=== PATIENT | female | born 1930 | race Caucasian/White ===

== ENCOUNTER 2016-09-26 14:52 | Emergency (ER) | payer MEDICARE, OTHER ==
[2015-10-22 14:32] VITALS: BMI 33.9
[~2016-09-26 14:52] MED LIST: ACIPHEX20 MG PO; ASPIRIN81 MG PO; BAYER CHEWABLE81 MG PO; COZAAR50 MG PO; CYMBALTA30 MG PO; GABAPENTIN100 MG PO; HYDROCODON-ACE1 EAC7 PO; ISOSORBIDE DINI30 MG PO; LEXAPRO20 MG; LEXAPRO20 MG PO; PLAVIX75 MG PO; TOPROL XL25 MG PO; ULTRAM50 MG PO; ZOCOR20 MG PO
[2016-09-26 15:27] LABS: BASOPHILS 0.3 % (0.0-2.0); EOSINOPHILS 0.6 % (0-7); HEMOGLOBIN 14.1 g/dL (12-16); IMMATURE GRANULOCYTES 0.4 % (0-5); LYMPHOCYTES 27.8 % (15-50); MCH 32.4 pg (26.0-34.0); MCHC 32.8 g/dL (31.0-37.0); MCV 98.9 fL (80.0-100.0); MEAN PLATELET VOLUME 10.8 fL (7.4-10.4); MONOCYTES 10.3 % (2-11); NEUTROPHILS 60.6 % (40-80); PLATELET COUNT 167 10x3/uL (130-400); RBC 4.35 10x6/uL (4.00-5.40); RDW 13.6 % (11.5-14.5); WBC 6.8 10x3/uL (4.8-10.8)
[2016-09-26 15:44] LABS: ALBUMIN 3.3 g/dL (3.4-5.0); ALKALINE PHOSPHATASE 66 U/L (46-116); ALT (SGPT) 29 U/L (10-68); BILIRUBIN - TOTAL 0.99 mg/dL (0.2-1.3); CALC OSMOLALITY 282 mosm/kg (275-300); CARBON DIOXIDE 28.1 mmol/L (21.0-32.0); CHLORIDE - SERUM 104 mmol/L (98-107); CREATININE - SERUM 0.9 mg/dL (0.6-1.3); GLUCOSE 100 mg/dL (74-106); PROTEIN - SERUM 6.6 g/dL (6.4-8.2); SODIUM 140 mmol/L (136-145); UREA NITROGEN 24 mg/dL (7-18); eGFR NON AFRICAN AMERICAN 63 mL/min (90-120)
[2016-09-26 15:55] LABS: CHOL - HDL RATIO 2.2 ratio (2.3-4.1); CHOLESTEROL, TOTAL 172 mg/dL (0-200); CKMB 1.8 U/L (0.0-3.6); CREATINE KINASE 79 UL (21-215); HDL CHOLESTEROL 77 mg/dL (32-96); LDL CHOLESTEROL 62 mg/dL (0-100); LDL-HDL RATIO 0.8 ratio (1.5-3.5); TRIGLYCERIDE 169 mg/dL (30-200)
[2016-09-26 16:00] LABS: TROPONIN-I < 0.017 ng/mL (0.000-0.060)
== END 2016-09-26 16:55 | disposition home or self-care (01) ==
LOC: D.ER 14:52
PROVIDERS: Emergency Medicine
DX: R07.89 Other chest pain (principal); I10 Essential (primary) hypertension

== ENCOUNTER 2017-02-20 07:50 | Outpatient (CLI) | payer MEDICARE, OTHER ==
[~2017-02-20] VITALS: Ht 147.3 cm; Wt 73.6 kg
--- NOTE | ~2017-02-20 | HEMODYNAMI ---
PATIENT:LARA CORBIN MEDICAL RECORD: [id number] : 28 LOCATION:[facility] ADMISSION DATE: 02/20/17 Generatedon:02/20/201710:47 Patient name: LARA CORBIN Patient #: [id number] SSN: DO B: 1930 Date of study: 02/20/2017 Page: Of Hemodynamic Procedure Report Patient Data Patient Demographics Procedure consent was obtained First Name: LARA Gender: Female Last Name: SHAQUILLE : 1930 Middle Initial: M Age: 86 year(s) Patient #: [id number] Race: Additional ID: [id number] Contact details [address]: [address] [place] [address] State: [place] City: [place] Zip code: [address] Past Medical History Allergies: No known allergies Admission Admission Data Admission Date: 02/20/2017 Admission Time: 7:50 Procedure Procedure Types Cath Procedure Diagnostic Procedure LHC LHC w/Coronaries PCI Procedure Coronary Stent Initial Miscellaneous Procedures Moderate Sedation up to 15 minutes Procedure Description Procedure Date Procedure Date: 02/20/2017 Procedure Start Time: 10:30 Procedure End Time: 10:45 Procedure Staff Name Function Dominic Jean MD Performing Physician Cait Padilla RT Scrub Wade Naranjo RN Nurse Siobhan Valdez RT Monitor Procedure Data Cath Procedure Fluoroscopy Diagnostic fluoroscopy Total fluoroscopy Time: 3.9 time: 3.9 min min Diagnostic fluoroscopy Total fluoroscopy dose: 492 dose: 492 mGy mGy Contrast Material Contrast Material Type Amount (ml) Isovue 300 60 Entry Location Entry Primary Successful Side Size Upsize Upsize Entry Closure Shaw ccessful Closure Location (Fr) 1 (Fr) 2 (Fr) Remarks Device Remarks Radial Right 6 Fr Mechanical artery Short Compression Estimated blood loss: 10 ml Diagnostic catheters Device Type Used For End Catheter Placement Diagnostic Terumo 5Fr LV Angiography Imperial 110cm catheter Procedure Complications No complications Procedure Medications Medication Administration Route Dosage Oxygen NC 2 l/min Heparin Flush Bag added to field 2 bags (1000units/500ml NS) 0.9% NaCl I.V. 100 ml/hr Radial Cocktail added to field 1 syringe (Verapomil 2mg/Nitro 400mcg/Heparin 1500units) Fentanyl I.V. 25 mcg Versed I.V. 0.5 mg Radial Cocktail I.A. 1 syringe (Verapomil 2mg/Nitro 400mcg/Heparin 1500units) Fentanyl I.V. 25 mcg Versed I.V. 0.5 mg Heparin Bolus I.V. 4000 units Integrilin (Bolus I.V. 6.2 ml 2mg/ml) Integrilin (Bolus wasted 3.8 ml 2mg/ml) Plavix P.O. 600 mg Hemodynamics Rest Heart Rate: 51 (bpm) Snapshots Pre Cath Intra NCS Post Cath Vital Signs Time Heart Resp SPO2 NIBP (mmHg) Rhythm Pain Sedation Rate (ipm) (%) Status Level (bpm) 10:17:47 51 20 91 145/66(121) NSR 0 (11) 10(A) , No pain 10:21:53 58 17 95 120/59(105) NSR 0 (11) 10(A) , No pain 10:26:07 53 17 91 114/54(84) NSR 0 (11) 9(A) , No pain 10:30:19 53 20 91 111/55(82) NSR 0 (11) 9(A) , No pain 10:34:29 60 18 91 99/52(78) NSR 0 (11) 9(A) , No pain 10:38:39 64 19 91 116/45(81) NSR 0 (11) 9(A) , No pain 10:42:51 62 18 93 116/55(91) NSR 0 (11) 9(A) , No pain 10:45:59 61 16 94 112/55(85) NSR 0 (11) 9(A) , No pain Medications Time Medication Route Dose Verified Delivered Reason Note s Effectiveness by by 10:20:08 Oxygen NC 2 l/min Wade Olvera Per physician Jose A Naranjo RN RN 10:20:16 Heparin Flush added 2 bags Wade Olvera used for Bag to Jose A Naranjo diamond grader (1000units/500ml field RN NS) 10:20:24 0.9% NaCl I.V. 100 Wade Weiry Per physician ml/hr Jose A Naranjo RN RN 10:20:42 Radial Cocktail added 1 Wade Wade used for (Verapomil to syringe Jose A Naranjo RN procedure 2mg/Nitro field RN 400mcg/Heparin 1500units) 10:21:01 Fentanyl I.V. 25 mcg Wade Wade for sedation Jose A Naranjo RN RN 10:21:08 Versed I.V. 0.5 mg Wade Wade for sedation Jose A Naranjo RN RN 10:31:16 Radial Cocktail I.A. 1 Wade Dominic for (Verapomil syringe Jose A Jean MD vasodilation 2mg/Nitro RN 400mcg/Heparin 1500units) 10:32:16 Fentanyl I.V. 25 mcg Wade Wade for sedation Jose A Naranjo RN RN 10:32:20 Versed I.V. 0.5 mg Wade Wade for sedation Jose A Naranjo RN RN 10:37:40 Heparin Bolus I.V. 4000 Wade Wade for units Jose A Naranjo RN anticoagulation RN 10:37:53 Integrilin I.V. 6.2 ml Wade Wade for (Bolus 2mg/ml) Jose A Naranjo RN antiplatelet RN therapy 10:40:10 Integrilin wasted 3.8 ml Wade Weiry for (Bolus 2mg/ml) Jose A Naranjo RN antiplatelet RN therapy 10:44:57 Plavix P.O. 600 mg Wade Wade for Jose A Naranjo RN antiplatelet RN therapy Procedure Log Time Note 9:50:24 Wade Naranjo RN sent for patient. Start room use. 10:05:25 Time tracking: Regular hours 10:05:29 Plan of Care:Hemodynamics will remain stable., Cardiac rhythm will remain stable., Comfort level will be maintained., Respiratory function will remain adequate., Patient/ family verbilizes understanding of procedure., Procedure tolerated without complication., Recovers from procedure without complications.. 10:05:33 Patient received from Pre/Post Procedure Room to [facility] 2 Alert and oriented. Tansferred to table in Supine position. 10:05:35 Warm blankets applied, and shade hugger turned on for patient comfort. 10:05:35 Correct patient and procedure confirmed by team. 10:05:36 Signed procedure consent form obtained from patient. 10:05:37 ECG and BP/O2 sat monitors applied to patient. 10:05:37 Full Disclosure recording started 10:11:34 H&P Date Dictated: 02/17/2017 Within 30 days and on chart., H&P Addendum completed by physician on day of procedure. (MUST COMPLETE FOR ALL OUTPATIENTS). 10:11:37 Pre-procedure instructions explained to patient. 10:11:39 Family in waiting room. 10:11:42 Patient NPO since Midnight. 10:11:59 Patient allergic to No known allergies 10:12:08 Is the patient allergic to Iodine/contrast media? No. 10:15:29 Is patient on blood thinner?Yes 10:15:32 ACC The patient was administered the following blood thiners within the last 24 hours: ACCPlavix 10:15:42 Baseline sample Acquired. 10:15:42 Vital chart was started 10:15:47 Rhythm: sinus rhythm 10:15:53 Snore? Yes 10:15:59 Dentures? Yes ? 10:16:04 Patient pain scale 0/10 ?. 10:16:10 IV patent on arrival in left forearm with 0.9% NaCl at [facility]. 10:16:37 Lab results completed and on chart. 10:16:42 Right Radial & Right Groin area was prepped with chlora-prep and draped in sterile fashion 10:16:43 Alarms reviewed by R. N. 10:16:43 Sharps counted by scrub and verified by R.N. 10:16:44 Physician paged 10:16:45 Physician arrived 10:16:46 --------ALL STOP TIME OUT------ 10:16:47 Final Timeout: patient, procedure, and site verified with staff and physician. All members of the team are in agreement. 10:16:49 Right Radial & Right Groin site verified by team. 10:16:53 Sedation plan: IV Moderate Sedation Versed, Fentanyl 10:17:01 Use device set Radial Dx 10:20:08 Oxygen 2 l/min NC was administered by Wade Naranjo RN; Per physician; 10:20:16 Heparin Flush Bag (1000units/500ml NS) 2 bags added to field was administered by Wade Naranjo RN; used for procedure; 10:20:24 0.9% NaCl 100 ml/hr I.V. was administered by Wade Naranjo RN; Per physician; 10:20:42 Radial Cocktail (Verapomil 2mg/Nitro 400mcg/Heparin 1500units) 1 syringe added to field was administered by Wade Naranjo RN; used for procedure; 10:21:01 Fentanyl 25 mcg I.V. was administered by Wade Naranjo RN; for sedation; 10:21:08 Versed 0.5 mg I.V. was administered by Wade Naranjo RN; for sedation; 10:21:51 Acist Syringe opened to sterile field. 10:21:52 Medline Cath Pack opened to sterile field. 10:21:53 Bag Decanter opened to sterile field. 10:21:53 Terumo 6Fr Slender Glidesheath opened to sterile field. 10:21:53 St Mark 260cm J .035 wire opened to sterile field. 10:21:54 Acist Hand Control opened to sterile field. 10:21:55 Acist Manifold opened to sterile field. 10:21:55 Tegaderm 4 x 4 opened to sterile field. 10:21:56 MBrace Wrist Support opened to sterile field. 10:29:59 Zero performed for pressure channel P1 10:30:05 Zero performed for pressure channel P1 10:30:16 Procedure started. 10:30:29 Local anesthetic to right radial artery with Lidocaine 2% by Dominic Jean MD.INITIAL ACCESS ONLY 10:30:39 A 6 Fr Short sheath was inserted into the Right Radial artery 10:31:16 Radial Cocktail (Verapomil 2mg/Nitro 400mcg/Heparin 1500units) 1 syringe I.A. was administered by Dominic Jean MD; for vasodilation; 10:32:16 Fentanyl 25 mcg I.V. was administered by Wade Naranjo RN; for sedation; 10:32:20 Versed 0.5 mg I.V. was administered by Wade Naranjo RN; for sedation; 10:33:00 A Diagnostic Terumo 5Fr Imperial 110cm catheter was advanced over the wire and used for LV Angiography. 10:33:07 EF : 55 % 10:33:10 LCA angiography performed. 10:33:24 RCA angiography performed. 10:33:29 Catheter removed. 10:36:34 Merit BasixCompak Inflation Kit opened to sterile field. 10:36:34 Ring Whisper J 300cm 0.014 guide wire opened to sterile field. 10:36:35 Cordis 6FR XBLAD 3.5 guide catheter opened to sterile field. 10:36:52 6 Fr xblad guide catheter was inserted over the wire 10:36:55 Wire advanced across lesion. 10:37:40 Heparin Bolus 4000 units I.V. was administered by Wade Naranjo RN; for anticoagulation; 10:37:53 Integrilin (Bolus 2mg/ml) 6.2 ml I.V. was administered by Wade Naranjo RN; for antiplatelet therapy; 10:38:30 Inflation number: 1 A Mozec Rx 3.0 x 14 balloon was prepped and advanced across the Mid LAD, then inflated to 17 SHANDA for 0:06 (min:sec). 10:39:56 Balloon removed over the wire. 10:40:10 Integrilin (Bolus 2mg/ml) 3.8 ml wasted was administered by Wade Naranjo RN; for antiplatelet therapy; 10:40:22 Inflation Number: 2 A Ishaan OTW 3.0 x 22 stent was prepped and advanced across the Mid LAD. The stent was deployed at 17 SHANDA for 0:00 (min:sec). 10:41:28 Guide catheter removed. 10:41:41 Terumo TR Band Standard opened to sterile field. 10:42:51 Sheath removed intact; hemostasis achieved with Mechanical Compression to the Right Radial artery. 10:42:54 Procedure ended.(Physican Out) 10:43:12 Fluoroscopy time 03.90 minutes. 10:43:19 Fluoroscopy dose: 492 mGy 10:43:19 Flurop Dose total: 492 10:43:24 Contrast amount:Isovue 300 60ml. 10:43:25 Sharps counted by scrub and verified by R.N. 10:43:34 TR band inflated with 10cc of air. 10:43:36 Insertion/operative site no bleeding no hematoma. 10:43:48 Post right radial artery:stable 10:43:50 Post Procedure Pulses reassessed and unchanged 10:43:55 Post-procedure physical assessment completed. ASA score P 3 - A patient with severe systemic disease as per Dominic Jean MD. 10:43:58 Post procedure rhythm: unchanged. 10:44:01 Estimated blood loss: 10 ml 10:44:03 Post procedure instruction explained to patient.Patient verbalizes understanding. 10:44:17 Procedure type changed to Cath procedure, Diagnostic procedure, LHC, LHC w/Coronaries, PCI procedure, Coronary Stent Initial, Miscellaneous Procedures, Moderate Sedation up to 15 minutes 10:44:20 Procedure and supply charges have been captured, reviewed, submitted and are correct. 10:44:46 Procedure Complication : No complications 10:44:48 Vital chart was stopped 10:44:52 See physician's report for complete and final results. 10:44:54 Report given to Pre/Post Procedure Room. 10:44:57 Plavix 600 mg P.O. was administered by Wade Naranjo RN; for antiplatelet therapy; 10:44:57 Patient transfered to Pre/Post Procedure Room with Stretcher. 10:44:59 Procedure ended. 10:44:59 Full Disclosure recording stopped 10:45:06 ACC-PCI Only Patient was given prescriptions, or instructed by Dominic Jean MD to start/continue the following medications upon discharge: Plavix Intervention Summary Intervention Notes Time ActionType Lesion and Equipment Action# Pressure Duration Attributes Used 10:38:30 Inflate Mid LAD Mozec Rx 1 17 00:06 balloon 3.0 x 14 balloon 10:40:22 Place stent Mid LAD Lehigh OTW 2 17 00:00 3.0 x 22 stent Device Usage Item Name Manufacture Quantity Catalog Hospital Part Current Minima l Lot# / Number Charge Number Stock Stock Serial# Code Acist Acist 1 [id number] [id number] 206500 371751 20 Syringe Medical Systems Inc Medline Cardinal 1 [id number] 299493 28138 199298 5 Cath Pack Health Bag Microtek 1 2001S 847285 42666 038446 5 Aito BV. Terumo 6Fr Terumo 1 [id number] 855899 126128 244920 [address] Makr 1 822392 596254 549445 821616 30 260cm J .035 wire Acist Hand Acist 1 62687 049389 856269 457590 5 Apropose Systems Inc Acist Acist 1 64327 659442 493170 104527 5 MetaChannels Systems Inc Tegaderm 4 3M 1 1626W 146084 852233 919660 5 x 4 MBrace Advanced 1 140-0250-00 992032 73876 842434 5 Wrist Vascular Support Dynamics Diagnostic Terumo 1 60-2912 666925 579161 800491 5 Terumo 5Fr Imperial 110cm catheter Merit Merit 1 [id number] 983180 451961 217677 15 BasixComClifford Thamesk Medical Inflation Kit Ring Ring 1 [id number] 074802 395962 449259 5 Whisper J Vascular 300cm 0.014 guide wire Cordis 6FR Cardinal 1 [id number] 147407 086285 249089 10 XBLAD 3.5 Health guide catheter Mozec Rx Cardinal 1 [id number] 185786 7219102 332379 5 UMOA45 3.0 x 14 Health balloon Lehigh OTW Medtronic 1 [id number] 395861 0732532 313072 5 [id number] 3.0 x 22 stent Terumo TR Terumo 1 [id number] 197772 452187 130185 40 Band Standard Signature Audit [place] Stage Time Signature Unsigned Intra-Procedure 02/20/2017 Siobhan Valdez 10:47:47 AM RT(R) Signatures Monitor : Siobhan Valdez Signature : RT Date : Time : [place] [id number] [facility] [place] [address]
[2017-02-20 08:24] VITALS: BP 147/66; Ht 147.3 cm; Wt 73.6 kg
[2017-02-20 08:36] LABS: BASOPHILS 0.4 % (0-2); EOSINOPHILS 1.7 % (0-7); HEMATOCRIT 45.7 % (36.0-48.0); IMMATURE GRANULOCYTES 0.2 % (0-5); LYMPHOCYTES 29.9 % (15-50); MCHC 32.8 g/dL (31.0-37.0); MCV 100.4 fL (80.0-100.0); MEAN PLATELET VOLUME 10.9 fL (7.4-10.4); MONOCYTES 8.4 % (2-11); NEUTROPHILS 59.4 % (40-80); PLATELET COUNT 142 10x3/uL (130-400); RBC 4.55 10x6/uL (4.00-5.40); RDW 13.7 % (11.5-14.5); WBC 4.8 10x3/uL (4.8-10.8)
[2017-02-20 08:55] LABS: CARBON DIOXIDE 29.2 mmol/L (21.0-32.0); CREATININE - SERUM 1.1 mg/dL (0.6-1.3); POTASSIUM - SERUM 4.2 mmol/L (3.5-5.1)
[2017-02-20] MEDS ORDERED: PLAVIX75 MG PO (11:09)
--- NOTE | 2017-02-20 11:16 | NUR ---
DR PAUL QUINTANILLA-SPOKE WITH , RIGHT WRIST WITH TR BAND INTACT-NO BLEEDING AT SITE
--- NOTE | 2017-02-20 11:45 | NUR ---
RESTING, RIGHT HAND WITH TR BAND INTACT, NO BLEEDING AT SITE
--- NOTE | 2017-02-21 12:31 | OP ---
PATIENT NAME: LARA CORBIN MEDICAL RECORD: [id number] :28 LOCATION:D.CAT ADMISSION DATE: SURGEON: RICK MILLER MD DATE OF OPERATION: 02/20/2017 PROCEDURES: 1. PTCA stent LAD. 2. Left heart catheterization. 3. Selective coronary angiography. 4. Left ventriculogram. INDICATION: Angina and coronary artery disease. PROCEDURE IN DETAIL: After informed consent was obtained, after detailed explanation of risks, benefits as well as alternative therapies, the patient elected to proceed with angiogram and angioplasty. The right radial area was prepped and draped in normal sterile fashion. The right radial artery was cannulated via modified Seldinger technique with placement of 6-Setswana sheath. All catheters exchanged through this sheath. FINDINGS: Left ventriculogram was performed in the standard 30-degree BARRERA view reveals good cardiac wall motion throughout all segments. Overall ejection fraction 55%. SELECTIVE CORONARY ANGIOGRAPHY: 1. Left main is with no significant angiographic disease. 2. Left anterior descending has multiple previously placed stents. 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 3. Left circumflex shows mild irregularities, but no flow-limiting stenosis. 4. Right coronary has mild irregularities, but no flow-limiting stenosis. PTCA STENT OF THE LAD: The stent used is a 3.0 x 22 mm [place]ura. The result was 0% residual stenosis. OVERALL IMPRESSION: Successful PTCA stent of the left anterior descending for in-stent restenosis, 80% initial stenosis to 0% residual stenosis. TRANSINT:[id number] Voice Confirmation ID: [id number] DOCUMENT ID: [id number] RICK MILLER MD at 1231 CC: [id number] DICTATION DATE: 02/20/17 1044 DIRECTOR MARKET RESEARCH: 02/20/172005 [facility] CLI 02/20/17 [place] [address]
== END 2017-02-20 15:00 | disposition home or self-care (01) ==
LOC: D.CATH 07:50
PROVIDERS: Internal Medicine Interventional Cardiology
DX: I25.119 Atherosclerotic heart disease of native coronary artery with unspecified angina pectoris (principal); T82.855A Stenosis of coronary artery stent, initial encounter; Z01.812 Encounter for preprocedural laboratory examination

== ENCOUNTER 2018-09-09 15:44 | Observation (INO) | payer MEDICARE, OTHER ==
[~2018-09-09] VITALS: Ht 147.3 cm; Wt 72.3 kg
--- NOTE | ~2018-09-09 | HEMODYNAMI ---
PATIENT:LARA CORBIN MEDICAL RECORD: [id number] : 28 LOCATION:[address] [facility] [id number] ADMISSION DATE: 09/09/18 Generatedon:09/10/20189:09 Patient name: LARA CORBIN Patient #: [id number] SSN: DO B: 1930 Date of study: 09/10/2018 Page: Of Hemodynamic Procedure Report Patient Data Patient Demographics Procedure consent was obtained First Name: LARA Gender: Female Last Name: SHAQUILLE : 1930 Middle Initial: M Age: 88 year(s) Patient #: [id number] Race: Additional ID: [id number] Contact details Address: [address] [place] [address] State: [place] City: [place] Zip code: [address] Past Medical History Allergies: No known allergies Admission Admission Data Admission Date: 09/09/2018 Admission Time: 17:53 Room #: [facility] Lab Results Lab Result Date: 09/10/2018 Lab Result Time: 0:00 Biochemistry Name Units Result Min Max BUN mg/dl 18 --(---*)-- 7 18 Creatinine mg/dl 0.8 --(-*--)-- 0.6 1.3 CBC Name Units Result Min Max Hemoglobin g/dl 13.3 -*(----)-- 13.5 17.5 Procedure Procedure Types Cath Procedure Diagnostic Procedure C [facility] w/Coronaries PCI Procedure Coronary Stent Coronary Stent Initial x2 Procedure Description Procedure Date Procedure Date: 09/10/2018 Procedure Start Time: 8:51 Procedure End Time: 9:07 Procedure Staff Name Function Dominic Jean MD Performing Physician John Mcdowell RT Monitor Yojana Monroy RT Scrub Amy Page RN Nurse Georges Thomas RT Monitor Procedure Data Cath Procedure Fluoroscopy Diagnostic fluoroscopy Total fluoroscopy Time: 3.6 time: 3.6 min min Diagnostic fluoroscopy Total fluoroscopy dose: 747 dose: 747 mGy mGy Contrast Material Contrast Material Type Amount (ml) Isovue 300 56 Entry Location Entry Primary Successful Side Size Upsize Upsize Entry Closure Shaw ccessful Closure Location (Fr) 1 (Fr) 2 (Fr) Remarks Device Remarks Radial Right 6 Fr Mechanical artery Short Compression Estimated blood loss: 10 ml Diagnostic catheters Device Type Used For End Catheter Placement DIAGNOSTIC [place] 110cm 5 Procedure Fr catheter ([id number]) Procedure Complications No complications Procedure Medications Medication Administration Route Dosage Oxygen etCO2 Nasal cannula 3 l/min Lidocaine 2% added to field 20 Heparin Flush Bag added to field 2 bags (1000units/500ml NS) 0.9% NaCl I.V. 100 ml/hr Radial Cocktail I.A. 1 syringe (Verapomil 2mg/Nitro 400mcg/Heparin 1500units) Versed I.V. 1 mg Fentanyl I.V. 50 mcg Versed I.V. 1 mg Fentanyl I.V. 50 mcg Heparin Bolus I.V. 4000 units Hemodynamics Rest HGB: 13.3 (g/dl) Heart Rate: 84 (bpm) Snapshots Pre Cath Intra NCS Post Cath Vital Signs Time Heart Resp SPO2 etCO2 NIBP (mmHg) Rhythm Pain Sedation Rate (ipm) (%) (mmHg) Status Level (bpm) 8:43:46 80 33 93 24.6 151/78(126) NSR 0 (11) 10(A) , No pain 8:48:02 82 16 90 0 126/73(110) NSR 0 (11) 10(A) , No pain 8:52:12 86 12 90 0 128/77(108) NSR 0 (11) 10(A) , No pain 8:56:26 97 13 91 0 112/67(82) NSR 0 (11) 9(A) , No pain 9:00:32 98 14 91 0 112/64(105) NSR 0 (11) 9(A) , No pain 9:04:38 96 14 92 24.6 120/68(105) NSR 0 (11) 9(A) , No pain 9:08:00 94 12 92 0 124/73(104) NSR 0 (11) 10(A) , No pain Medications Time Medication Route Dose Verified Delivered Reason Note s Effectiveness by by 8:42:20 Oxygen etCO2 3 l/min Dominic Reyes used for pt o xygen Nasal Tauth MD Page telephone station installer saturation cannula is 89-91% on arrivial to labor operator. 8:42:27 Lidocaine 2% added 20ml Dominic Alfaro for local to vial Miranda Jean MD anesthetic field 8:42:35 Heparin Flush added 2 bags Dominic Alfaro used for Bag to Miranda Jean MD procedure (1000units/500ml field NS) 8:42:44 0.9% NaCl I.V. 100 Dominic Reyes Per physician ml/hr Miranda Page RN 8:42:56 Radial Cocktail I.A. 1 Dominic Alfaro for (Verapomil syringe Miranda Jean MD vasodilation 2mg/Nitro 400mcg/Heparin 1500units) 8:50:56 Versed I.V. 1 mg Dominic Reyes for sedation Miranda Page RN 8:51:01 Fentanyl I.V. 50 mcg Dominic Reyes for sedation Miranda Page RN 8:56:00 Versed I.V. 1 mg Dominic Reyes for sedation Miranda Page RN 8:56:03 Fentanyl I.V. 50 mcg Dominic Reyes for sedation Miranda Page RN 8:59:54 Heparin Bolus I.V. 4000 Dominic Sanchezie for veri fied units Miranda Page RN anticoagulation with dr jean Procedure Log Time Note 8:09:56 Signed procedure consent form obtained from patient. 8:09:57 Diagnostic Cath status Elective 8:09:58 Time tracking: Regular hours (M-F 7:00 - 5:00) 8:10:01 Plan of Care:Hemodynamics will remain stable., Cardiac rhythm will remain stable., Comfort level will be maintained., Respiratory function will remain adequate., Patient/ family verbilizes understanding of procedure., Procedure tolerated without complication., Recovers from procedure without complications.. 8:18:21 Lab Result : Creatinine 0.8 mg/dl 8:18:21 Lab Result : BUN 18 mg/dl 8:18:21 Lab Result : Hemoglobin 13.3 g/dl 8:24:46 Amy Page RN sent for patient. Start room use. 8:34:39 Patient received from Med II to CCL 2 Alert and oriented. Tansferred to table in Supine position. 8:34:40 Warm blankets applied, and shade hugger turned on for patient comfort. 8:34:40 Correct patient and procedure confirmed by team. 8:34:41 ECG and BP/O2 sat monitors applied to patient. 8:42:20 Oxygen 3 l/min etCO2 Nasal cannula was administered by Amy Page RN; used for procedure; pt oxygen saturation is 89-91% on arrivial to labor operator. 8:42:27 Lidocaine 2% 20ml vial added to field was administered by Dominic Jean MD; for local anesthetic; 8:42:35 Heparin Flush Bag (1000units/500ml NS) 2 bags added to field was administered by Dominic Jean MD; used for procedure; 8:42:44 0.9% NaCl 100 ml/hr I.V. was administered by Amy Page RN; Per physician; 8:42:47 Vital chart was started 8:42:56 Radial Cocktail (Verapomil 2mg/Nitro 400mcg/Heparin 1500units) 1 syringe I.A. was administered by Dominic Jean MD; for vasodilation; 8:48:32 Baseline sample Acquired. 8:48:40 Rhythm: sinus rhythm 8:48:43 Full Disclosure recording started 8:49:09 H&P Date Dictated: 09/10/2018 Within 30 days and on chart.. 8:49:14 Pre-procedure instructions explained to patient. 8:49:14 Pre-op teaching completed and patient verbalized understanding. 8:49:16 Family in patients room. 8:49:18 Patient NPO since Midnight. 8:49:23 Patient allergic to No known allergies 8:49:25 Is the patient allergic to Iodine/contrast media? No. 8:49:34 Is patient on blood thinner?Yes 8:49:35 ACC The patient was administered the following blood thiners within the last 24 hours: ACCPlavix 8:49:37 Patient diabetic? No. 8:49:39 Previous problem with sedation/anesthesia? No ? 8:49:40 Snore? Yes 8:49:41 Sleep apnea? No 8:49:42 Deviated septum? No 8:49:43 Opens mouth fully? Yes 8:49:47 Sticks out tongue? Yes 8:49:51 Dentures? No ? 8:49:52 Airway obstruction? No ? 8:49:54 Modified Francisco's test Ulnar < 7 seconds 8:49:55 Patient pain scale 0/10 ?. 8:49:59 IV patent on arrival in left forearm with 0.9% NaCl at [facility]. 8:50:01 Lab results completed and on chart. 8:50:03 Right Radial & Right Groin area was prepped with chlora-prep and draped in sterile fashion 8:50:04 Alarms reviewed by R. N. 8:50:04 Sharps counted by scrub and verified by R.N. 8:50:07 Use device set Radial Dx or PCI 8:50:08 ACIST Syringe (25853) opened to sterile field. 8:50:08 Medline Cath Pack ([id number]) opened to sterile field. 8:50:08 Bag Decanter (2002S) opened to sterile field. 8:50:09 ACIST Hand Control (94579) opened to sterile field. 8:50:09 ACIST Manifold (93410) opened to sterile field. 8:50:10 Tegaderm 4 x 4 (1626W) opened to sterile field. 8:50:10 MBrace Wrist Support ([id number]) opened to sterile field. 8:50:11 SHEATH 6FR Slender (15-5927) opened to sterile field. 8:50:12 DIAGNOSTIC WIRE .035 260cm J wire (058694) opened to sterile field. 8:50:19 Physician arrived 8:50:19 --------ALL STOP TIME OUT------ 8:50:20 Final Timeout: patient, procedure, and site verified with staff and physician. All members of the team are in agreement. 8:50:21 Right Radial & Right Groin site verified by team. 8:50:23 Fire Safety Assessment: A--An alcohol-based skin anteseptic being used preoperatively., C--Open oxygen or nitrous oxide is being used., D--An ESU, laser, or fiber-optic light is being used. 8:50:27 Physical assessment completed. ASA score P 3 - A patient with severe systemic disease as per Dominic Jean MD. 8:50:28 Sedation plan: IV Moderate Sedation Medication:Versed, Fentanyl 8:50:52 Zero performed for pressure channel P1 8:50:54 Zero performed for pressure channel P1 8:50:56 Versed 1 mg I.V. was administered by Buffie Page RN; for sedation; 8:51:01 Fentanyl 50 mcg I.V. was administered by Amy Page RN; for sedation; 8:51:02 Procedure started. 8:51:06 Local anesthetic to right radial artery with Lidocaine 2% by Dominic Jean MD.INITIAL ACCESS ONLY 8:51:13 A 6 Fr Short sheath was inserted into the Right Radial artery 8:53:54 A DIAGNOSTIC [place] 110cm 5 Fr catheter ([id number]) was advanced over the wire and used for Procedure. 8:55:23 RCA angiography performed. 8:56:00 Versed 1 mg I.V. was administered by Amy Page RN; for sedation; 8:56:03 Fentanyl 50 mcg I.V. was administered by Amy Page RN; for sedation; 8:56:07 GUIDE 6FR XBLAD 3.5 catheter ([id number]) opened to sterile field. 8:56:59 LV angiography performed. 8:57:00 LV gram done using BARRERA 8:57:02 Injector settings: Ml/sec: 5, Volume: 15, 8:57:07 EF : 60 % 8:57:12 Catheter exchanged over wire. 8:57:21 6 Fr xblad 3.5 guide catheter was inserted over the wire 8:58:00 LCA angiography performed. 8:59:01 CHOICE PT Extra Support 182cm wire ([id number]) opened to sterile field. 8:59:02 INFLATOR Merit BasixCompak (GY6833) opened to sterile field. 8:59:34 choice pt es wire advanced. 8:59:54 Heparin Bolus 4000 units I.V. was administered by Amy Page RN; for anticoagulation; verified with dr jean 9:01:22 Wire advanced across lesion. 9:01:42 Place stent Inflation Number: 1 A RUSSELL RX 3.0 x 26 stent ([id number]) was prepped and advanced across the Prox LAD. The stent was deployed at 17 SHANDA for 0:10 (min:sec). 9:01:46 Inflation number: 2 The stent balloon was then re-inflated across the Prox LAD to 17 SHANDA for 0:10 (min:sec). 9:01:53 Inflation number: 3 The stent balloon was then re-inflated across the Prox LAD to 17 SHANDA for 0:10 (min:sec). 9:01:59 Stent catheter was removed intact over wire. 9:02:08 Wire redirected to cx. 9:02:56 Wire advanced across lesion. 9:03:49 Place stent Inflation Number: 1 A RUSSELL RX 3.0 x 12 stent ([id number]) was prepped and advanced across the 1st Ob Pat. The stent was deployed at 11 SHANDA for 0:10 (min:sec). 9:03:55 Stent catheter was removed intact over wire. 9:03:55 Wire removed. 9:03:56 Guide catheter removed. 9:04:06 TR BAND Standard ([id number]) opened to sterile field. 9:04:12 Sheath removed intact; hemostasis achieved with Mechanical Compression to the Right Radial artery. 9:04:13 Procedure ended.(Physican Out) 9:06:01 Fluoroscopy time 03.60 minutes. 9:06:05 Fluoroscopy dose: 747 mGy 9:06:05 Flurop Dose total: 747 9:06:08 Contrast amount:Isovue 300 56ml. 9:06:09 Sharps counted by scrub and verified by R.N. 9:06:11 TR band inflated with 12cc of air. 9:06:12 Insertion/operative site no bleeding no hematoma. 9:06:16 Post Procedure Pulses reassessed and unchanged 9:06:18 Post-procedure physical assessment completed. ASA score P 3 - A patient with severe systemic disease as per Dominic Jean MD. 9:06:20 Post procedure rhythm: unchanged. 9:06:23 Estimated blood loss: 10 ml 9:06:24 Post procedure instruction explained to patient.Patient verbalizes understanding. 9:06:24 Patient needs reinforcement of post procedure teaching. 9:06:45 Procedure type changed to Cath procedure, Diagnostic procedure, LHC, LHC w/Coronaries, PCI procedure, Coronary Stent, Coronary Stent Initial x2 9:07:14 Procedure and supply charges have been captured, reviewed, submitted and are correct. 9:07:15 Procedure Complication : No complications 9:07:17 Vital chart was stopped 9:07:17 See physician's report for complete and final results. 9:07:24 Report given to PCU. 9:07:25 Patient transfered to PCU with Stretcher. 9:07:27 Procedure ended. 9:07:27 Full Disclosure recording stopped 9:07:30 End room use (Document Last) Intervention Summary Intervention Notes Time ActionType Lesion and Equipment Used Action# Pressure Duration Attributes 9:01:42 Place stent Prox LAD RUSSELL RX 3.0 x 1 17 00:10 26 stent ([id number]) 9:01:46 Reinflate Prox LAD RUSSELL RX 3.0 x 2 17 00:10 stent 26 stent balloon ([id number]) 9:01:53 Reinflate Prox LAD RUSSELL RX 3.0 x 3 17 00:10 stent 26 stent balloon ([id number]) 9:03:49 Place stent 1st Ob Pat RUSSELL RX 3.0 x 1 11 00:10 12 stent ([id number]) Device Usage Item Name Manufacture Quantity Catalog Number Hospital Part Current M inimal Lot# / Charge Number Stock Stock Serial# Code ACIST Syringe Acist 1 38515 427925 643233 057544 2 0 (73640) Medical Systems Inc Medline Cath Medline 1 [id number] 903672 24889 671224 5 Pack ([id number]) Bag Decanter Microtek 1 2001S 739996 25752 657820 5 (2001S) Medical Inc. ACIST Hand Acist 1 98703 334643 029009 165683 5 Control Medical (42921) Systems Inc ACIST Manifold Acist 1 56830 353243 011623 779748 5 (33125) Medical Systems Inc Tegaderm 4 x 4 3M 1 1626W 626081 150883 502226 5 (1626W) MBrace Wrist Advanced 1 140-0250-00 905285 61543 438578 5 Support Vascular (129192455) Dynamics SHEATH 6FR Terumo 1 [id number] 492368 651692 157447 5 Slender (80-1060) DIAGNOSTIC [facility] 1 938191 752280 791117 430453 3 0 WIRE .035 260cm J wire (667706) DIAGNOSTIC Terumo 1 97-5036 495016 113752 281042 5 [place] 110cm 5 Fr catheter (867760) GUIDE 6FR Cardinal 1 72225461 988911 197310 354427 1 0 XBLAD 3.5 Health catheter (21400090) CHOICE PT Hendricks 1 [id number] 323015 399690 523601 5 Extra Support Scientific 182cm wire (1044785L1) INFLATOR Merit Merit 1 AD1786 903455 470880 171794 1 5 BasixCompak Medical (EG6601) RUSSELL RX 3.0 x Medtronic 1 [id number] 900380 9744289 594444 5 [id number] 26 stent ([id number]) RUSSELL RX 3.0 x Medtronic 1 [id number] 934995 7547328 427757 5 [id number] 12 stent ([id number]) TR BAND Terumo 1 [id number] 448732 628452 927650 4 0 Standard (MER01CAL) Signature Audit [place] Stage Time Signature Unsigned Intra-Procedure 09/10/2018 John Mcdowell 9:09:18 AM RT(R) Signatures Monitor : John Mcdowell RT Signature : Date : Time : Monitor : Georges hTomas RT Signature : Date : Time : [address] [address]
[2018-09-09 16:23] LABS: BASOPHILS 0.2 % (0-2); HEMATOCRIT 43.1 % (36.0-48.0); HEMOGLOBIN 14.5 g/dL (12-16); IMMATURE GRANULOCYTES 0.2 % (0-5); LYMPHOCYTES 37.3 % (15-50); MCH 32.8 pg (26.0-34.0); MCHC 33.6 g/dL (31.0-37.0); MCV 97.5 fL (80.0-100.0); MEAN PLATELET VOLUME 11.3 fL (7.4-10.4); MONOCYTES 13.3 % (2-11); PLATELET COUNT 163 10x3/uL (130-400); RBC 4.42 10x6/uL (4.00-5.40); RDW 13.4 % (11.5-14.5)
[2018-09-09 16:43] LABS: ALBUMIN 3.2 g/dL (3.4-5.0); ALKALINE PHOSPHATASE 50 U/L (46-116); ALT (SGPT) 21 U/L (10-68); BILIRUBIN - TOTAL 0.92 mg/dL (0.2-1.3); CALC OSMOLALITY 284 mosm/kg (275-300); CALCIUM 9.3 mg/dL (8.5-10.1); CARBON DIOXIDE 28.5 mmol/L (21.0-32.0); CHLORIDE - SERUM 102 mmol/L (98-107); GLUCOSE 119 mg/dL (74-106); POTASSIUM - SERUM 4.2 mmol/L (3.5-5.1); PROTEIN - SERUM 7.1 g/dL (6.4-8.2); SODIUM 141 mmol/L (136-145); UREA NITROGEN 20 mg/dL (7-18); eGFR NON AFRICAN AMERICAN 55 mL/min (90-120)
[2018-09-09 16:55] LABS: CKMB 3.3 U/L (0.0-3.6); CREATINE KINASE 136 UL (21-215)
[2018-09-09 16:57] LABS: TROPONIN-I < 0.017 ng/mL (0.000-0.060)
[2018-09-09 17:09] VITALS: BP 124/69
[2018-09-09 17:58] LABS: CKMB 2.9 U/L (0.0-3.6); CREATINE KINASE 119 UL (21-215)
[2018-09-09 18:00] LABS: TROPONIN-I < 0.017 ng/mL (0.000-0.060)
[2018-09-09 18:16] VITALS: BP 132/68
--- NOTE | 2018-09-09 19:41 | NUR ---
PATIENT ARRIVED FROM ER VIA WHEEL CHAIR. PATIENT IS ALERT AND ORIENTED. RESPIRATIONS ARE EVEN AND UNLABORED. DENIES NEEDS AT THIS TIME. CALL LIGHT WITHIN REACH. PATIENT BOARD UPDATED. AT BEDSIDE. WILL CPOC.
[2018-09-09 20:00] VITALS: BP 117/47
[2018-09-09 23:57] VITALS: BP 117/47; Ht 147.3 cm; Wt 72.3 kg
[2018-09-10] VITALS: BP 118/58
[2018-09-10 04:00] VITALS: BP 132/59
[2018-09-10 05:35] LABS: BASOPHILS 0.2 % (0-2); EOSINOPHILS 1.9 % (0-7); HEMATOCRIT 40.2 % (36.0-48.0); HEMOGLOBIN 13.3 g/dL (12-16); IMMATURE GRANULOCYTES 0.2 % (0-5); LYMPHOCYTES 36.4 % (15-50); MCH 32.3 pg (26.0-34.0); MCHC 33.1 g/dL (31.0-37.0); MCV 97.6 fL (80.0-100.0); MEAN PLATELET VOLUME 11.2 fL (7.4-10.4); MONOCYTES 10.9 % (2-11); NEUTROPHILS 50.4 % (40-80); PLATELET COUNT 133 10x3/uL (130-400); RBC 4.12 10x6/uL (4.00-5.40); RDW 13.3 % (11.5-14.5); WBC 4.1 10x3/uL (4.8-10.8)
[2018-09-10 06:03] LABS: ALBUMIN 2.8 g/dL (3.4-5.0); ALKALINE PHOSPHATASE 44 U/L (46-116); ALT (SGPT) 17 U/L (10-68); BILIRUBIN - TOTAL 0.88 mg/dL (0.2-1.3); CALC OSMOLALITY 281 mosm/kg (275-300); CARBON DIOXIDE 25.3 mmol/L (21.0-32.0); CHLORIDE - SERUM 106 mmol/L (98-107); CKMB 2.6 U/L (0.0-3.6); CREATINE KINASE 109 UL (21-215); CREATININE - SERUM 0.8 mg/dL (0.6-1.3); GLUCOSE 109 mg/dL (74-106); PROTEIN - SERUM 6.2 g/dL (6.4-8.2); SODIUM 140 mmol/L (136-145); TROPONIN-I 0.019 ng/mL (0.000-0.060); UREA NITROGEN 18 mg/dL (7-18); eGFR NON AFRICAN AMERICAN 72 mL/min (90-120)
--- NOTE | 2018-09-10 07:30 | NUR ---
AWAKE AND ALERT. DENIES ANY NEEDS. NPO FOR CATH. TELEMERTY SHOWS SR. RIGHT FA SL. SR UP WITH CALL LIGHT IN REACH.
--- NOTE | 2018-09-10 07:55 | NUR ---
TO ADJUNCT TEACHER PER BED.
[2018-09-10 09:13] VITALS: BP 160/67
--- NOTE | 2018-09-10 09:30 | NUR ---
BACK FROM GRAIN BROKER. V/S STABLE. RIGHT ARM TR BAND WITH NO BLEEDING. FINGERS WARM. WILL MONITOR
--- NOTE | 2018-09-10 11:00 | NUR ---
RESTING QUIETLY NAD NOTED
[2018-09-10] MEDS ORDERED: PLAVIX75 MG PO (13:12)
--- NOTE | 2018-09-10 14:54 | NUR ---
PT DISCHARGED. TR BAND REMOVED WITH NO BLEEDING OR SWELLING NOTED. TO PRIVATE CAR PER WHEELCHAIR.
--- NOTE | 2018-09-13 09:04 | MORECARE ---
CASE MANAGEMENT DISCHARGE SUMMARY PATIENT: LARA CORBIN UNIT: [id number] ADM DATE: 09/09/18 AGE: 88 : [birth year] SEX: F ROOM/BED: D.1 AUTHOR: ARMINDA CALDERON PHYSICIAN: REFERRING PHYSICIAN: RICK MILLER MD DATE OF SERVICE: 09/13/18 Discharge Plan Patient Name: LARA COBRIN Facility: [facility]:[place] : 1930 Planned Disposition: Home Anticipated Discharge Date: 09/10/18 Discharge Date: 09/10/2018 Expected LOS: 1 Initial Reviewer: [email or web address] Initial Review Date: 09/13/2018 Generated: 09/13/18 10:04 am Patient Name: LARA CORBIN Page [id number] at 0904 All edits/amendments must be made on the electronic document DICTATION DATE: 09/13/18902 CHAIR AND COUCH MAKER: DALIA 09/13/18902 RPT#: [id number] DC DATE:09/10/18 STATUS: DIS IN [facility] [address] [place] [address] END OF REPORT
--- NOTE | 2018-09-13 11:45 | OP ---
PATIENT NAME: LARA CORBIN MEDICAL RECORD: [id number] :[birth year] LOCATION:D.M2 D.2121 ADMISSION DATE:09/09/18 SURGEON: RICK MILLER MD DATE OF OPERATION: 09/10/2018 PROCEDURES: 1. PTCA stent LAD. 2. PTCA stent left circumflex. 3. Left heart catheterization. 4. Selective coronary angiography. 5. Left ventriculogram. INDICATION: Angina and coronary artery disease. PROCEDURE IN DETAIL: After informed consent was obtained and after a detailed description of the risks, benefits as well as alternative therapies, the patient elected to proceed with angiogram and angioplasty. The right radial area was prepped and draped in normal sterile fashion. Right radial artery was cannulated via modified Seldinger technique with placement of 6-Gabonese sheath. All catheters exchanged through this sheath. FINDINGS: Left ventriculogram was performed in standard 30-degree BARRERA view, reveals good cardiac wall motion throughout all segments. Overall ejection fraction estimated 60%. SELECTIVE CORONARY ANGIOGRAPHY: 1. Left main is with no significant angiographic disease. 2. Left anterior descending has previously placed stents. 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 3. Left circumflex has previously placed stents, these are widely patent; however, there is an 80% stenosis in the first obtuse marginal. 4. Right coronary artery has moderate irregularities, but no flow-limiting stenosis. Previously placed stents are widely patent. PTCA STENT OF THE LAD AND CIRCUMFLEX: The LAD was addressed with a 3.0 x 26 mm Ishaan. The circumflex with a 3.0 x 12 mm Ishaan. Result was 0% residual stenosis. OVERALL IMPRESSION: Successful percutaneous transluminal coronary angioplasty stent of the left anterior descending and circumflex, both going from 80% initial stenosis to 0% residual. TRANSINT:[id number] Voice Confirmation ID: [id number] DOCUMENT ID: [id number] RICK MILLER MD at 1145 CC: [id number] DICTATION DATE: 09/10/18 0911 RN CLINICAL: 09/10/18 1021 DIS IN 09/10/18 [address] [place] [address]
--- NOTE | 2018-09-13 11:46 | DS ---
PATIENT:LARA LAY :28 MEDICAL RECORD: [id number] DISCHARGE SUMMARY ADMISSION DATE: 09/09/18 DISCHARGE DATE: 09/10/18 DATE OF DISCHARGE: 09/10/2018 DISCHARGE DIAGNOSES: 1. PTCA and stent of LAD. 2. PTCA and stent of left circumflex. 3. Unstable angina. 4. Coronary artery disease. 5. Hypertension. 6. Hyperlipidemia. HOSPITAL COURSE: Ms. Lay presents with unstable anginal symptomatology, found to have significant disease of the LAD and circumflex. Underwent successful PTCA and stent of both territories. She was discharged home with the addition of Plavix to her medical regimen. She will follow up with [facility] in 1 month. TRANSINT:[id number] Voice Confirmation ID: [id number] DOCUMENT ID: [id number] RICK MILLER MD at 1146 CC: [id number] DICTATION DATE: 09/10/18 0910 SPRING FORMER: 09/11/18 0027 DIS IN 09/10/18 [address] [place] [address]
== END 2018-09-10 15:01 | disposition home or self-care (01) ==
LOC: D.ER 15:44 → OBSVTIME 17:53 → D.M2 17:53
PROVIDERS: Family Medicine; ADMIT Internal Medicine Interventional Cardiology
DX: I25.110 Atherosclerotic heart disease of native coronary artery with unstable angina pectoris (principal); I10 Essential (primary) hypertension; E78.5 Hyperlipidemia, unspecified
CPT/HCPCS: 93458; C9600 ×2

== ENCOUNTER 2018-12-03 09:06 | Outpatient (CLI) | payer MEDICARE, OTHER ==
[~2018-12-03] VITALS: Ht 147.3 cm; Wt 71.8 kg
--- NOTE | ~2018-12-03 | HEMODYNAMI ---
PATIENT:LARA CORBIN MEDICAL RECORD: [id number] : 28 LOCATION:[facility] ADMISSION DATE: 12/03/18 Generatedon:12/03/201811:49 Patient name: LARA CORBIN Patient #: [id number] SSN: DO B: 1930 Date of study: 12/03/2018 Page: Of Hemodynamic Procedure Report Patient Data Patient Demographics Procedure consent was obtained First Name: LARA Gender: Female Last Name: SHAQUILLE : 1930 Middle Initial: M Age: 88 year(s) Patient #: [id number] Race: Additional ID: [id number] Contact details [address]: [address] [place] [address] State: [place] City: [place] Zip code: [address] Past Medical History Allergies: No known allergies Admission Admission Data Admission Date: 12/03/2018 Admission Time: 9:06 Admit Source: Other Procedure Procedure Types Cath Procedure Diagnostic Procedure LHC LHC w/Coronaries FFR/IVUS FFR Initial Procedure Description Procedure Date Procedure Date: 12/03/2018 Procedure Start Time: 11:35 Procedure End Time: 11:47 Procedure Staff Name Function Dominic Jean MD Performing Physician Juan R Flor RN Nurse Georges Thomas RT Monitor John Mcdowell RT Scrub Procedure Data Cath Procedure Fluoroscopy Diagnostic fluoroscopy Total fluoroscopy Time: 2.4 time: 2.4 min min Diagnostic fluoroscopy Total fluoroscopy dose: 472 dose: 472 mGy mGy Contrast Material Contrast Material Type Amount (ml) Isovue 370 51 Entry Location Entry Primary Successful Side Size Upsize Upsize Entry Closure Shaw ccessful Closure Location (Fr) 1 (Fr) 2 (Fr) Remarks Device Remarks Radial Right 6 Fr Mechanical artery Short Compression Estimated blood loss: 10 ml Diagnostic catheters Device Type Used For End Catheter Placement DIAGNOSTIC Kunia 110cm 5 Procedure Fr catheter (030410) Procedure Complications No complications Procedure Medications Medication Administration Route Dosage 0.9% NaCl I.V. 100 ml/hr Oxygen etCO2 Nasal cannula 2 l/min Heparin Flush Bag added to field 2 bags (1000units/500ml NS) Lidocaine 2% added to field 20 Radial Cocktail added to field 1 syringe (Verapamil 2mg/Nitro 400mcg/Heparin 1500units) Versed I.V. 0.5 mg Fentanyl I.V. 25 mcg Versed I.V. 0.5 mg Radial Cocktail I.A. 1 syringe (Verapamil 2mg/Nitro 400mcg/Heparin 1500units) Hemodynamics Rest Heart Rate: 79 (bpm) Pressure Samples Time Site Value (mmHg) Purpose Heart Use Rate(bpm) 11:46 AO (-4) Snapshot 86 Snapshots Pre Cath Intra NCS Post Cath Vital Signs Time Heart Resp SPO2 etCO2 NIBP Rhythm Pain Sedation Rate (ipm) (%) (mmHg) (mmHg) Status Level (bpm) 11:20:54 80 15 92 0 110/60(76) NSR 0 (11) 10(A) , No pain 11:25:02 80 13 91 0 119/63(79) NSR 0 (11) 10(A) , No pain 11:29:12 77 13 92 0 113/65(79) NSR 0 (11) 10(A) , No pain 11:33:19 77 14 94 2.2 116/62(85) NSR 0 (11) 10(A) , No pain 11:37:33 85 15 93 0 110/53(71) NSR 0 (11) 9(A) , No pain 11:41:41 91 16 92 0 117/57(81) NSR 0 (11) 10(A) , No pain 11:45:51 85 16 92 0 129/63(94) NSR 0 (11) 10(A) , No pain Medications Time Medication Route Dose Verified Delivered Reason Notes Effectiveness by by 11:18:54 0.9% NaCl I.V. 100 Juan R Juan R Per ml/hr Chacho Flor physician RN RN 11:19:03 Oxygen etCO2 2 l/min Juan R Juan R for low 02 Nasal Lorigan Eileenigan sats cannula RN RN 11:19:14 Heparin Flush added 2 bags Juan R Juan R used for Bag to Lorigan Chacho procedure (1000units/500ml field RN RN NS) 11:19:24 Lidocaine 2% added 20ml Juan R Juan R for local to vial Lorigan Lorigan anesthetic RN RN 11:19:38 Radial Cocktail added 1 Juan R Juan R used for (Verapamil to syringe Lorigan Lorigan procedure 2mg/Nitro field RN RN 400mcg/Heparin 1500units) 11:30:48 Versed I.V. 0.5 mg Juan R Juan R for sedation Chacho Flor RN RN 11:30:59 Fentanyl I.V. 25 mcg Juan R Juan R for sedation Chacho Flor RN RN 11:35:05 Versed I.V. 0.5 mg Juan R Juan R for sedation Chacho Flor RN RN 11:35:35 Radial Cocktail I.A. 1 Juan R Dominic for (Verapamil syringe Chacho Jean MD vasodilation 2mg/Nitro RN 400mcg/Heparin 1500units) Procedure Log Time Note 10:45:45 Georges Thomas RT(R) sent for patient. Start room use. 11:02:25 Informed consent obtained and on chart 11:02:28 Admit Source: Other 11:02:43 Diagnostic Cath status Elective 11:05:41 Patient received from Pre/Post Procedure Room to CCL 2 Alert and oriented. Tansferred to table in Supine position. 11:05:42 Warm blankets applied, and shade hugger turned on for patient comfort. 11:05:43 Correct patient and procedure confirmed by team. 11:05:43 ECG and BP/O2 sat monitors applied to patient. 11:05:44 Pre-procedure instructions explained to patient. 11:05:45 Pre-op teaching completed and patient verbalized understanding. 11:05:53 H&P Date Dictated: 11/30/2018 Within 30 days and on chart., H&P Addendum completed by physician on day of procedure. (MUST COMPLETE FOR ALL OUTPATIENTS). 11:18:54 0.9% NaCl 100 ml/hr I.V. was administered by Juan R Flor RN; Per physician; 11:19:03 Oxygen 2 l/min etCO2 Nasal cannula was administered by Juan R Flor RN; for low 02 sats; 11:19:14 Heparin Flush Bag (1000units/500ml NS) 2 bags added to field was administered by Juan R Flor RN; used for procedure; 11:19:24 Lidocaine 2% 20ml vial added to field was administered by Juan R Lorigan RN; for local anesthetic; 11:19:38 Radial Cocktail (Verapamil 2mg/Nitro 400mcg/Heparin 1500units) 1 syringe added to field was administered by Juan R Flor RN; used for procedure; 11::51 Vital chart was started 11::52 Baseline sample Acquired. ::57 Rhythm: sinus rhythm ::58 Full Disclosure recording started 11:20:05 Family in waiting room. 11:20:07 Patient NPO since Midnight. 11:20:08 Is the patient allergic to Iodine/contrast media? No. 11:20:09 Is patient on blood thinner?Yes 11:20:12 ACC The patient was administered the following blood thiners within the last 24 hours: ACCPlavix 11:20:15 Patient diabetic? No. 11:20:24 Previous problem with sedation/anesthesia? No ? 11:20:26 Snore? Yes 11:20:28 Sleep apnea? No 11:20:29 Deviated septum? No 11:20:29 Opens mouth fully? Yes 11:20:30 Sticks out tongue? Yes 11:20:32 Airway obstruction? No ? 11:20:36 Dentures? No ? 11:20:38 Pre procedure: right dorsailis pedis pulse 1+ Palpable, but thready & weak; easily obliterated 11:20:40 Modified Francisco's test Ulnar < 7 seconds 11:20:42 Patient pain scale 0/10 ?. 11:20:49 IV patent on arrival in left forearm with 0.9% NaCl at O. 11:20:51 Lab results completed and on chart. 11::58 Right Radial & Right Groin area was prepped with chlora-prep and draped in sterile fashion 11:21:00 Alarms reviewed by R. N. 11:21:00 Sharps counted by scrub and verified by R.N. 11:26:52 Use device set Radial Dx or PCI 11::54 Tegaderm 4 x 4 (1626W) opened to sterile field. 11:26:54 ACIST Manifold (46791) opened to sterile field. 11:26:55 ACIST Hand Control (85799) opened to sterile field. 11:26:57 ACIST Syringe (08548) opened to sterile field. 11:26:57 Medline Cath Pack ([id number]) opened to sterile field. 11:26:58 Bag Decanter () opened to sterile field. 11:26:58 DIAGNOSTIC WIRE .035 260cm J wire (454569) opened to sterile field. 11:27:00 MBrace Wrist Support ([id number]) opened to sterile field. 11:27:02 SHEATH 6FR Slender (92-3775) opened to sterile field. 11:29:09 --------ALL STOP TIME OUT------ 11:29:10 Final Timeout: patient, procedure, and site verified with staff and physician. All members of the team are in agreement. 11:29:18 Right Radial & Right Groin site verified by team. 11:29:22 Maximum allowable Isovue 300 dose 300ml. Physician notified. (300ml for normal creatinines. For patients with creatinine of 1.7 or higher multiply weight(kg) x 5 divided by creatinine.) 11:29:26 Fire Safety Assessment: A--An alcohol-based skin anteseptic being used preoperatively., C--Open oxygen or nitrous oxide is being used., D--An ESU, laser, or fiber-optic light is being used. 11:29:30 Physical assessment completed. ASA score P 2 - A patient with mild systemic disease as per Dominic Jean MD. 11:29:33 Sedation plan: IV Moderate Sedation Medication:Versed, Fentanyl 11:30:48 Versed 0.5 mg I.V. was administered by Juan R Flor RN; for sedation; 11:30:59 Fentanyl 25 mcg I.V. was administered by Juan R Flor RN; for sedation; 11:35:05 Versed 0.5 mg I.V. was administered by Juan R Flor RN; for sedation; 11:35:18 Procedure started. 11:35:27 Local anesthetic to right radial artery with Lidocaine 2% by Dominic Jean MD.INITIAL ACCESS ONLY 11:35:34 A 6 Fr Short sheath was inserted into the Right Radial artery 11:35:35 Radial Cocktail (Verapamil 2mg/Nitro 400mcg/Heparin 1500units) 1 syringe I.A. was administered by Dominic Jean MD; for vasodilation; 11:36:34 A DIAGNOSTIC Kunia 110cm 5 Fr catheter (436645) was advanced over the wire and used for Procedure. 11:37:11 LV angiography performed. 11:37:13 LV gram done using BARRERA 11:37:17 EF : 70 % 11:37:21 Injector settings: Ml/sec: 7, Volume: 15, 11:37:42 LCA angiography performed. 11:38:10 Use device set PAUL PCI 11:38:43 RCA angiography performed. 11:38:50 Catheter exchanged over wire. 11:38:55 [place] [employer] Plus pressure wire (53132V) opened to sterile field. 11:39:05 INFLATOR Merit BasixCompak (WE6863) opened to sterile field. 11:39:18 GUIDE 6FR XBLAD 3.5 catheter ([id number]) opened to sterile field. 11:40:47 6 Fr XBLAD 3.5 guide catheter was inserted over the wire 11:41:17 FFR/IFR wire advanced. 11:44:09 LAD lesion measured at 0.92 with IFR 11:44:12 Wire removed. 11:44:30 TR BAND Standard ([id number]) opened to sterile field. 11:45:13 Sheath removed intact; hemostasis achieved with Mechanical Compression to the Right Radial artery. 11:45:26 Procedure ended.(Physican Out) 11:45:42 Fluoroscopy time 02.40 minutes. 11:45:46 Fluoroscopy dose: 472 mGy 11:45:46 Flurop Dose total: 472 11:45:55 Contrast amount:Isovue 370 51ml. 11:45:57 Sharps counted by scrub and verified by R.N. 11:46:04 TR band inflated with 11cc of air. 11:46:06 Insertion/operative site no bleeding no hematoma. 11:46:07 Post Procedure Pulses reassessed and unchanged 11:46:10 Post-procedure physical assessment completed. ASA score P 2 - A patient with mild systemic disease as per Dominic Jean MD. 11:46:12 Post procedure rhythm: unchanged. 11:46:15 Estimated blood loss: 10 ml 11:46:16 Post procedure instruction explained to patient.Patient verbalizes understanding. 11:46:17 Patient needs reinforcement of post procedure teaching. 11:46:37 Procedure type changed to Cath procedure, Diagnostic procedure, LHC, LHC w/Coronaries, FFR/IVUS, FFR Initial 11:46:39 Procedure and supply charges have been captured, reviewed, submitted and are correct. 11:46:41 Procedure Complication : No complications 11:47:50 Vital chart was stopped 11:47:51 See physician's report for complete and final results. 11:47:52 Report given to Pre/Post Procedure Room. 11:47:54 Patient transfered to Pre/Post Procedure Room with Stretcher. 11:47:56 Procedure ended. 11:47:56 Full Disclosure recording stopped 11:48:16 End room use (Document Last) Device Usage Item Name Manufacture Quantity Catalog Hospital Part Current Mini mal Lot# / Number Charge Number Stock Stock Serial# Code Tegaderm 4 3M 1 [id number] [id number] 5 x 4 (1626W) ACIST Acist 1 23461 858369 948775 920439 5 Manifold Medical (84460) Systems Inc ACIST Hand Acist 1 97607 174023 340374 810984 5 Control Medical (92411) Systems Inc ACIST Acist 1 78417 185960 211756 827995 20 Syringe Medical (37731) Systems Inc Medline Medline 1 [id number] 206690 63003 086094 5 Cath Pack ([id number]) Bag Microtek 1 2001S 107886 78966 445895 5 Decanter Medical Inc. () DIAGNOSTIC [facility] 1 839037 486464 417897 009854 30 WIRE .035 260cm J wire (258790) MBrace Advanced 1 140-0250-00 738396 13544 303041 5 Wrist Vascular Support Dynamics ([id number]) SHEATH 6FR Terumo 1 [id number] 305944 686220 779684 5 Slender (80-1060) DIAGNOSTIC Terumo 1 40-7553 813760 724364 212741 5 Kunia 110cm 5 Fr catheter (514399) [place] 1 [id number] 049262 [id number] 954125 5 Verrata Plus pressure wire (21989Z) INFLATOR Merit 1 BW9170 476350 740193 638154 15 [facility] Medical BasixCompak (VT9794) GUIDE 6FR Cardinal 1 [id number] 891178 045809 794411 10 XBLAD 3.5 Health catheter (77353124) TR BAND Terumo 1 [id number] 447131 069867 212846 40 Standard ([id number]) Signature Audit [place] Stage Time Signature Unsigned Intra-Procedure 12/03/2018 Georges Thomas 11:49:23 AM RT(R) Signatures Monitor : Georges Thomas RT Signature : Date : Time : [id number] [place] [address]
[2018-12-03] MEDS ORDERED: CYMBALTA30 MG PO (09:22)
[2018-12-03 09:35] VITALS: BP 131/48; Ht 147.3 cm; Wt 71.8 kg
[2018-12-03 09:43] LABS: BASOPHILS 0.6 % (0-2); EOSINOPHILS 1.9 % (0-7); HEMATOCRIT 43.8 % (36.0-48.0); HEMOGLOBIN 14.5 g/dL (12-16); LYMPHOCYTES 31.4 % (15-50); MCH 31.4 pg (26.0-34.0); MCHC 33.1 g/dL (31.0-37.0); MCV 94.8 fL (80.0-100.0); MEAN PLATELET VOLUME 11.1 fL (7.4-10.4); MONOCYTES 9.9 % (2-11); NEUTROPHILS 56.2 % (40-80); RBC 4.62 10x6/uL (4.00-5.40); RDW 13.4 % (11.5-14.5); WBC 5.1 10x3/uL (4.8-10.8)
[2018-12-03 09:44] LABS: PLATELET COUNT 197 10x3/uL (130-400)
[2018-12-03 09:57] LABS: ANION GAP 13.7 mmol/L (8-16); CARBON DIOXIDE 26.8 mmol/L (21.0-32.0); CREATININE - SERUM 1.2 mg/dL (0.6-1.3); POTASSIUM - SERUM 4.5 mmol/L (3.5-5.1)
[2018-12-03] MEDS ORDERED: NITRO-DUR0.6 MG TRANSDERM (12:15)
--- NOTE | 2018-12-03 16:42 | OP ---
PATIENT NAME: LARA CORBIN MEDICAL RECORD: [id number] :[birth year] LOCATION:D.CAT ADMISSION DATE: SURGEON: RICK MILLER MD DATE OF OPERATION: 12/03/2018 PROCEDURES: 1. Left heart catheterization. 2. Selective coronary angiography. 3. Left ventriculogram. 4. IFR. INDICATION: Angina, coronary artery disease, previous multivessel PTCA stent. PROCEDURE IN DETAIL: After informed consent was obtained and after a detailed description of risks, benefits as well as alternative therapies, the patient elected to proceed with angiogram and heart catheterization. The right radial area was prepped and draped in normal sterile fashion. Right radial artery was cannulated via modified Seldinger technique with placement of 5-Ivorian sheath. All catheters exchanged through this sheath. FINDINGS: Left ventriculogram was performed in standard 30-degree BARRERA view, reveals good cardiac wall motion throughout all segments. Overall ejection fraction 55%. SELECTIVE CORONARY ANGIOGRAPHY: 1. Left main is with no significant angiographic disease. 2. Left anterior descending has multiple previously placed stents. These are patent. There is a questionable area of in-stent restenosis in the mid vessel; however, the IFR was normal. 3. Left circumflex has previously placed stent that is widely patent. 4. The right coronary artery has moderate irregularities, but no flow-limiting stenosis. OVERALL IMPRESSION: Wide patency of the previously placed stents with no significant restenosis. No disease elsewise. Continue medical management of the coronary artery disease and cardiac risk factors. TRANSINT:[id number] Voice Confirmation ID: [id number] DOCUMENT ID: [id number] RICK MILLER MD at 1642 CC: [id number] DICTATION DATE: 12/03/18 1157 MENTAL HEALTH TECHNICIAN: 12/03/18 1239 DEP CLI 12/03/18 [place] [id number]
== END 2018-12-03 13:55 | disposition home or self-care (01) ==
LOC: D.CATH 09:06
PROVIDERS: ATTEND Internal Medicine Interventional Cardiology
DX: R06.02 Shortness of breath (principal); I25.110 Atherosclerotic heart disease of native coronary artery with unstable angina pectoris

== ENCOUNTER → 2019-05-03 12:57 | Outpatient (CLI) | payer MEDICARE, OTHER ==
[2018-12-03 09:35] VITALS: BMI 33.0
[~2019-05-03 12:57] MED LIST changes: +NITRO-DUR0.6 MG TRANSDERM
--- NOTE | 2019-05-05 13:30 | EC ---
PATIENT:LARA COBRIN DATE OF SERVICE: 05/03/19 SEX: F MEDICAL RECORD: [id number] DATE OF : 28 LOCATION:[facility] AGE OF PATIENT: 88 ADMISSION DATE: 05/03/19 REFERRING PHYSICIAN: INTERPRETING PHYSICIAN: RICK JEAN MD ECHOCARDIOGRAM REPORT ECHO CHARGES 4 ECHO COMPLETE Date: 05/03/19 CLINICAL DIAGNOSIS: MV DISORDER/MITRAL REGURG/AORTIC INSUFF ECHOCARDIOGRAPHIC MEASUREMENTS (adult normal given) AC root (d.<3.7cm) 2.9 cm LV Septum d (<1.2 cm> 1.2 cm Valve Excursion 0.9 cm LV Septum (systole) 1.5 cm Left Atria (s.<4.0cm> 4.3 cm LVPW d(<1.2cm) 1.5 cm RV (d.<2.3cm) 3.4 cm LVPW (sytole) 1.6 cm LV diastole(<5.6CM) 4.1 cm MV E-F(>70mm/sec) cm LV systole 3.3 cm LVOT Diameter 1.2 cm MV exc.(>10mm) 1.6 cm Est.ejection fraction (50-75%) % DOPPLER: LVIT cm/sec A 115 cm/sec E 96.0 cm/sec LA cm/sec RVSP 25 mmHg LVOT 208 cm/sec AOP1/2T 554 m/s Asc. Ao 258 cm/sec RVOT 87 cm/sec RA cm/sec PA 104 cm/sec AV Gradient Peak 26.72mmHg AV Mean 17.42mmHg AV Area 1.4 cm MV Gradient Peak 4.55 mmHg MV Mean 1.95 mmHg MV Area cm COMMENTS: Jacket Changer: 2 TRUMAN ANN Wire Wrapper Machine Operator: 1 Dr. Jean TAPE# PACS Pericardial Effusion N DATE OF SERVICE: PROCEDURE: Echocardiogram. FINDINGS: 1. Left ventricular chamber size is within normal limits. Left ventricular systolic function is normal at 55% to 60%. 2. Left atrium is enlarged at 4.3 cm. Right atrium and right ventricular chamber sizes are as well mildly dilated. 3. Valvular structures: Aortic valve demonstrates [id number] calcific ECHOCARDIOGRAM REPORT [id number] LARA CORBIN aortic stenosis, valve area capsule calculates to 1.4 cm-squared. There is a gradient of 27 mm across the valve. The remaining valvular structures have normal structure and motion. 4. Doppler interrogation elsewise reveals mild aortic insufficiency, mild mitral regurgitation, mild tricuspid regurgitation, no other valvular insufficiency or stenosis and pulmonary systolic pressure is estimated at 25 mmHg. 5. No evidence of pericardial effusion or left ventricular thrombus. TRANSINT:[id number] Voice Confirmation ID: [id number] DOCUMENT ID: [id number] RICK JEAN MD at 1330 CC: [id number] DICTATION DATE: 05/03/19 162 CARTOON ANIMATOR: 05/04/19 0116 DEP CLI 05/03/19 [facility] [address] [place] [address]
== END | disposition home or self-care (01) ==
LOC: D.HCCECHO 12:57 → D.HCCARDIO 13:30
PROVIDERS: ATTEND Internal Medicine Interventional Cardiology
DX: I05.9 Rheumatic mitral valve disease, unspecified (principal)